=== PATIENT | male | born 1955 | race Caucasian/White ===

== ENCOUNTER 2020-10-07 04:22 | Emergency (ER) | payer SELFPAY ==
[2020-10-07] MEDS ORDERED: Rocuronium 100 MG/10 ML MDV IV ONE (04:23)
[2020-10-07] MEDS ORDERED: Succinylcholine 200 MG/10 ML MDV IV ONE (04:23)
[2020-10-07] MEDS: Sodium Chloride 0.9% 1,000 ML IV ONE (04:30)
[2020-10-07 05:01] LABS: ANION GAP 27.4 mEq/L (7-13); CHLORIDE,CL 107 mmol/L (98-107); SODIUM,NA 146 mmol/L (136-145)
[2020-10-07] MEDS: Midazolam 1 MG/ML 2 ML SDV IVPUSH ONE (05:03)
[2020-10-07] MEDS: Midazolam 1 MG/ML 2 ML SDV ONE (05:03)
[2020-10-07 05:24] LABS: O2 DELIVERY DEVICE RESUSCITATION BAG
[2020-10-07 05:25] LABS: ALLEN TEST POSITIVE; BASE EXCESS ARTERIAL -13 mmol/L ((-2)-(+3)); BICARBONATE,ARTERIAL 15.5 mmol/L (22-26); O2 SATURATION ARTERIAL 98 % (95-100); PCO2 ARTERIAL 45 mmHg (35-45); PO2 ARTERIAL 99 mmHg (70-100)
[2020-10-07] MEDS: SODIUM THIOSULFATE ONE (05:56)
[2020-10-07] MEDS: SODIUM NITRITE IVPUSH ONE (05:56)
[2020-10-07] MEDS: SODIUM NITRITE ONE (05:56)
[2020-10-07] MEDS: SODIUM THIOSULFATE IVPUSH ONE (05:56)
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
== END 2020-10-07 06:34 ==
LOC: DL.ED 04:22
DX: T59.811A Toxic effect of smoke, accidental (unintentional), initial encounter (principal); I46.9 Cardiac arrest, cause unspecified; R41.82 Altered mental status, unspecified
CPT/HCPCS: 36415; 36600; 71045; 80053; 80305; 80307; 81001; 82150; 82375; 82803; 84484; 85025; 85379; 96374; 96375; 99285; J2250; J7030